=== PATIENT | male | born 1975 | race Caucasian/White ===

== ENCOUNTER 2016-08-19 15:11 | Emergency (ER) | payer BC ==
[~2016-08-19] VITALS: Ht 177.8 cm; Wt 88.0 kg
[2016-08-19] MEDS ORDERED: ONDANSETRON 2MG/ML, 2ML IVPush ONE (16:00)
[2016-08-19] MEDS ORDERED: SODIUM CHLORIDE FLUSH 10ML SYR IVF ONE (16:00)
[2016-08-19] MEDS ORDERED: MAALOX/HYOSCYAMINE/LIDOCAINE 45 ML BOTTLE PO ONE (16:00)
[2016-08-19] MEDS ORDERED: SODIUM CHLORIDE 0.9% 1,000ML IVBOLUS ONE ×2 (16:00→18:00)
[2016-08-19 16:19] LABS: ASPARTATE AMINO TRANSFERASE 13 U/L (15-37); BLOOD UREA NITROGEN 13 mg/dL (7-18)
[2016-08-19] MEDS ORDERED: ONDANSETRON 2MG/ML, 2ML ONE (16:44)
[2016-08-19] MEDS ORDERED: MAALOX/HYOSCYAMINE/LIDOCAINE 45 ML BOTTLE ONE (16:44)
[2016-08-19 17:23] LABS: IS PT STATUS REG ER OR PRE ER? YES
[2016-08-19 18:42] VITALS: BP 129/84
== END 2016-08-19 18:45 | disposition home or self-care (01) ==
LOC: ED 18:31
DX: R07.2 Precordial pain (principal); R00.2 Palpitations; E86.0 Dehydration; A08.4 Viral intestinal infection, unspecified; E78.00 Pure hypercholesterolemia, unspecified; F17.200 Nicotine dependence, unspecified, uncomplicated; K21.9 Gastro-esophageal reflux disease without esophagitis
CPT/HCPCS: 36415; 71010; 80053; 81001; 83690; 84484; 85025; 93005; 96361; 96374; 99285; J2405; J7030

== ENCOUNTER 2016-11-26 14:13 | Emergency (ER) | payer BC ==
[~2016-11-26] VITALS: Ht 177.8 cm; Wt 90.6 kg
[2016-11-26 14:18] VITALS: BP 120/84
[2016-11-26] MEDS ORDERED: IBUPROFEN 200 MG TABLET PO ONE (16:00)
== END 2016-11-26 15:43 | disposition home or self-care (01) ==
LOC: ED 15:40
DX: S43.402A Unspecified sprain of left shoulder joint, initial encounter (principal); K21.9 Gastro-esophageal reflux disease without esophagitis; E78.00 Pure hypercholesterolemia, unspecified; X58.XXXA Exposure to other specified factors, initial encounter; Y93.89 Activity, other specified; Y92.89 Other specified places as the place of occurrence of the external cause; Y99.8 Other external cause status
CPT/HCPCS: 99284